=== PATIENT | female | born 1970 | race Caucasian/White ===

== ENCOUNTER 2018-08-25 09:21 | Inpatient (IN) | payer BC ==
[~2018-08-25 09:21] MED LIST: CEFAZOLIN 2 GM/50 ML (PMX) 50 ML IVPB; SOD CHLORIDE 0.9% 1,000 ML IV
[2018-08-25 11:17] LABS: ADD MAN DIFF? NO
[2018-08-25 11:20] LABS: WHITE BLOOD COUNT 5.2 10^3/ul (4.8-10.8)
[2018-08-25 11:20] LABS: BASOPHILS % 0.4 % (0.0-2.0); EOSINOPHILS # 0.1 10^3/ul (0.0-0.5); EOSINOPHILS % 2.5 % (0.0-7.0); HEMATOCRIT 38.4 % (37.0-47.0); HEMOGLOBIN 12.4 g/dl (12.0-16.0); LYMPHOCYTES # 1.7 10^3/ul (0.8-2.9); LYMPHOCYTES % 33.2 % (15.0-51.0); MEAN CORPUSCULAR HEMOGLOBIN 29.3 pg (29.0-33.0); MEAN CORPUSCULAR HGB CONC 32.3 g/dl (32.0-37.0); MEAN CORPUSCULAR VOLUME 90.8 fl (82.0-101.0); MEAN PLATELET VOLUME 11.6 fl (7.4-10.4); MONOCYTE # 0.5 10^3/ul (0.3-0.9); MONOCYTES % 9.9 % (0.0-11.0); NEUTROPHIL # 2.8 10^3/ul (1.6-7.5); NEUTROPHILS % 53.6 % (39.0-77.0); PLATELET COUNT 241 10^3/UL (140-415); RED BLOOD COUNT 4.23 10^6/ul (4.20-5.40); RED CELL DISTRIBUTION WIDTH 13.6 % (11.5-14.5)
[2018-08-25 11:39] LABS: ALANINE AMINOTRANSFERASE 29 IU/L (13-69); ALBUMIN 4.4 g/dl (3.3-4.9); ALBUMIN/GLOBULIN RATIO 1.29; ALKALINE PHOSPHATASE 67 IU/L (42-121); ANION GAP 7 (5-13); ASPARTATE AMINO TRANSFERASE 22 IU/L (15-46); BILIRUBIN,INDIRECT 0.5 mg/dl (0-1.1); BILIRUBIN,TOTAL 0.5 mg/dl (0.2-1.3); BLOOD UREA NITROGEN 7 mg/dl (7-20); CALCIUM 9.4 mg/dl (8.4-10.2); CARBON DIOXIDE 27 mmol/L (21-31); CHLORIDE 107 mmol/L (97-110); CREATININE 0.19 mg/dl (0.44-1.00); Estimated GFR > 60 mL/min (>60); GLUCOSE 95 mg/dl (70-220); INR 0.88; PARTIAL THROMBOPLASTIN TIME 25.9 Sec (23.0-35.0); POTASSIUM 4.3 mmol/L (3.5-5.1); PT RATIO 0.9; SODIUM 141 mmol/L (135-144); TOTAL PROTEIN 7.8 g/dl (6.1-8.1)
[2018-08-25] MEDS ORDERED: MIDAZOLAM 1 MG/ML 2 ML INJ (12:38)
[2018-08-25] MEDS ORDERED: FENTAnyl 50 MCG/ML VIAL (12:38)
[2018-08-25] MEDS ORDERED: BUPIVACAINE 0.25% (MPF) 30 ML INJ (13:46)
[2018-08-25] MEDS ORDERED: ONDANSETRON 4 MG INJ IV (14:00)
[2018-08-25] MEDS ORDERED: morphine 2 MG INJ IV (14:00)
[2018-08-25] MEDS ORDERED: LIDOCAINE 2% (SDV) 5 ML INJ (14:13)
[2018-08-25] MEDS ORDERED: CEFAZOLIN 1 GM INJ (14:13)
[2018-08-25] MEDS ORDERED: PROPOFOL 20 ML (14:13)
[2018-08-25] MEDS ORDERED: ONDANSETRON 4 MG INJ (14:13)
[2018-08-25] MEDS ORDERED: DIPHENHYDRAMINE 50 MG INJ IV (14:30)
[2018-08-25] MEDS ORDERED: METOCLOPRAMIDE 10 MG INJ IV (14:30)
[2018-08-25] MEDS ORDERED: FENTAnyl 50 MCG/ML VIAL IV (14:30)
[2018-08-25] MEDS: ONDANSETRON 4 MG INJ IV (14:37)
[2018-08-25] MEDS: MEPERIDINE 25 MG INJ IV (14:37)
[2018-08-25] MEDS: FENTAnyl 50 MCG/ML VIAL IV ×2 (14:44→14:54)
[2018-08-25] MEDS: D5W-0.45 NACL + KCL 20 MEQ 1,000 ML IV ×3 (16:53→23:57)
[2018-08-25] MEDS: ACETAMINOPHEN 1000MG/100ML IV 100 ML IVPB ×2 (17:44→23:57)
[2018-08-26] MEDS ORDERED: ZOLPIDEM 5 MG TAB PO (02:15)
[2018-08-26] MEDS ORDERED: ACETAMINOPHEN 325 MG TAB PO (02:15)
[2018-08-26] MEDS ORDERED: ZOLPIDEM 5 MG TAB (02:25)
[2018-08-26] MEDS ORDERED: ACETAMINOPHEN 325 MG TAB (02:25)
[2018-08-26] MEDS: ACETAMINOPHEN 1000MG/100ML IV 100 ML IVPB (06:42)
[2018-08-26] MEDS: D5W-0.45 NACL + KCL 20 MEQ 1,000 ML IV (08:31)
[2018-08-26 11:32] LABS: ADD MAN DIFF? NO
[2018-08-26 11:40] LABS: BASOPHILS % 0.2 % (0.0-2.0); EOSINOPHILS # 0.1 10^3/ul (0.0-0.5); EOSINOPHILS % 2.4 % (0.0-7.0); HEMATOCRIT 35.9 % (37.0-47.0); HEMOGLOBIN 11.3 g/dl (12.0-16.0); LYMPHOCYTES # 1.8 10^3/ul (0.8-2.9); LYMPHOCYTES % 33.2 % (15.0-51.0); MEAN CORPUSCULAR HEMOGLOBIN 29.2 pg (29.0-33.0); MEAN CORPUSCULAR HGB CONC 31.5 g/dl (32.0-37.0); MEAN CORPUSCULAR VOLUME 92.8 fl (82.0-101.0); MEAN PLATELET VOLUME 12.1 fl (7.4-10.4); MONOCYTE # 0.5 10^3/ul (0.3-0.9); MONOCYTES % 9.8 % (0.0-11.0); NEUTROPHILS % 53.9 % (39.0-77.0); PLATELET COUNT 222 10^3/UL (140-415); RED BLOOD COUNT 3.87 10^6/ul (4.20-5.40); RED CELL DISTRIBUTION WIDTH 14.1 % (11.5-14.5)
[2018-08-26 11:40] LABS: WHITE BLOOD COUNT 5.5 10^3/ul (4.8-10.8)
[2018-08-26 12:13] LABS: ANION GAP 9 (5-13); BLOOD UREA NITROGEN 3 mg/dl (7-20); CALCIUM 8.9 mg/dl (8.4-10.2); CARBON DIOXIDE 24 mmol/L (21-31); CHLORIDE 107 mmol/L (97-110); CREATININE 0.24 mg/dl (0.44-1.00); Estimated GFR > 60 mL/min (>60); GLUCOSE 113 mg/dl (70-220); POTASSIUM 4.3 mmol/L (3.5-5.1); SODIUM 140 mmol/L (135-144)
== END 2018-08-26 16:50 | disposition home or self-care (01) | DRG 581 ==
LOC: REC 09:21 → 2NE 16:00
PROC: 0HBT0ZZ Excision of Right Breast, Open Approach (ICD-10-PCS; principal; 2018-08-25 12:00)
PROC: 07B50ZX Excision of Right Axillary Lymphatic, Open Approach, Diagnostic (ICD-10-PCS; 2018-08-25 12:00)
DX: D05.81 Other specified type of carcinoma in situ of right breast (principal)
CPT/HCPCS: 71045; 80048; 80053; 85025; 85610; 85730; 88307; 93005

== ENCOUNTER 2019-01-14 06:20 | Day surgery (SDC) | payer BC ==
[2019-01-14] MEDS ORDERED: MEPERIDINE 25 MG INJ IV (07:30)
[2019-01-14] MEDS ORDERED: ACETAMINOPHEN 325 MG TAB PO (07:30)
[2019-01-14] MEDS ORDERED: ONDANSETRON 4 MG INJ IV (07:30)
[2019-01-14] MEDS ORDERED: ALBUTEROL 0.083% (NEB) 2.5 MG/3 ML AMP HHN (07:30)
[2019-01-14] MEDS ORDERED: IPRATROPIUM (NEB) 0.5 MG/2.5 ML AMP HHN (07:30)
[2019-01-14] MEDS ORDERED: EPHEDrine SULFATE 50 MG/5 ML SYG IV (07:30)
[2019-01-14] MEDS ORDERED: hydrALAzine 20 MG INJ IV (07:30)
[2019-01-14] MEDS ORDERED: FENTAnyl 50 MCG/ML VIAL IV ×2 (07:30)
[2019-01-14] MEDS ORDERED: HYDROCODONE/APAP (5/325) TAB PO (07:30)
[2019-01-14] MEDS ORDERED: LABETALOL HCL 20MG INJ IV (07:30)
[2019-01-14] MEDS ORDERED: HYDROmorphONE 1 MG/5 ML IV SYRINGE IV ×2 (07:30)
[2019-01-14] MEDS ORDERED: OXYCODONE/ACETAMINOPHEN (5/325) TAB PO ×2 (07:30)
[2019-01-14] MEDS ORDERED: TRIMETHOBENZAMIDE 100 MG/ML VIAL IM (07:30)
[2019-01-14] MEDS ORDERED: morphine 2 MG INJ IV (07:30)
[2019-01-14] MEDS ORDERED: MIDAZOLAM 1 MG/ML 2 ML INJ IV (07:30)
[2019-01-14] MEDS ORDERED: GLYCOPYRROLATE 0.4 MG INJ (07:34)
[2019-01-14] MEDS ORDERED: ROCURONIUM 50 MG INJ (07:34)
[2019-01-14] MEDS ORDERED: NEOSTIGMINE 3 MG/3 ML SYRINGE (07:34)
[2019-01-14] MEDS ORDERED: CEFAZOLIN 1 GM INJ (07:34)
[2019-01-14] MEDS ORDERED: PROPOFOL 20 ML (07:34)
[2019-01-14] MEDS ORDERED: MIDAZOLAM 1 MG/ML 2 ML INJ (07:35)
[2019-01-14] MEDS ORDERED: FENTAnyl 50 MCG/ML VIAL (07:35)
[2019-01-14] MEDS ORDERED: DEXAMETHASONE 4 MG/ML 5 ML INJ (07:35)
[2019-01-14] MEDS ORDERED: ONDANSETRON 4 MG INJ (07:35)
[2019-01-14] MEDS: GENTAMICIN 80 MG INJ (08:08)
[2019-01-14] MEDS: POLYMYXIN/BACITRACIN 1L IRRIG (08:09)
[2019-01-14] MEDS: BUPIVACAINE 0.5%/EPI (SDV) 30 ML INJ (08:09)
[2019-01-14] MEDS: SODIUM CL BACTERIOSTATIC 30 ML INJ (08:11)
[2019-01-14] MEDS: BUPIVACAINE LIPOSOME/PF 266 MG/20 ML VIAL INFIL (08:31)
[2019-01-14] MEDS: DIPHENHYDRAMINE 50 MG INJ IV (09:49)
[2019-01-14] MEDS: FENTAnyl 50 MCG/ML VIAL IV (09:49)
[2019-01-14] MEDS: HYDROmorphONE 1 MG/5 ML IV SYRINGE IV (09:49)
[2019-01-14] MEDS: ONDANSETRON 4 MG INJ IV (09:49)
== END 2019-01-14 12:11 | disposition home or self-care (01) ==
LOC: SDS 06:20
DX: Z90.11 Acquired absence of right breast and nipple (principal); Z85.3 Personal history of malignant neoplasm of breast
CPT/HCPCS: 19357; 88304